=== PATIENT | male | born 1995 | race Two or more races ===

== ENCOUNTER 2022-10-20 19:59 | Emergency (ER) | payer SELFPAY ==
[~2022-10-20] VITALS: Ht 180.3 cm; Wt 111.6 kg
[2022-10-20 21:39] VITALS: BP 125/83; PULSE 75; RESP 16; TEMP 97.9; O2SAT 100
[2022-10-20] MEDS ORDERED: HYDR-4902 PO (23:40)
[2022-10-20] MEDS ORDERED: ZOFR4T PO (23:40)
== END 2022-10-20 23:50 | disposition home or self-care (01) ==
LOC: ER 20:01
DX: S62.396A Other fracture of fifth metacarpal bone, right hand, initial encounter for closed fracture (principal); F12.90 Cannabis use, unspecified, uncomplicated; V89.2XXA Person injured in unspecified motor-vehicle accident, traffic, initial encounter; Y93.89 Activity, other specified; Y92.89 Other specified places as the place of occurrence of the external cause; Y99.8 Other external cause status
CPT/HCPCS: 29125; 73130